=== PATIENT | female | born 1940 | race Caucasian/White ===

== ENCOUNTER → 2021-02-12 13:32 | Outpatient (CLI) | payer MEDICARE, OTHER, SELFPAY ==
--- NOTE | 2021-02-12 15:00 | DI.RAD.S_ITS ---
PROCEDURE: XR CHEST 2V INDICATIONS: Renal Mass TECHNIQUE: 2 views of the chest were acquired. COMPARISON: None. FINDINGS: Surgical changes and devices: Right upper quadrant surgical clips. Lungs and pleura: Scattered subsegmental atelectasis and/or scarring. No focal consolidation. . No pleural effusions or pneumothorax. Mediastinum: Mediastinal contours are normal. Heart size is normal. Bones and chest wall: No suspicious bony abnormalities. Soft tissues appear unremarkable. IMPRESSION: Scattered subsegmental atelectasis and/or scarring. No focal consolidation. Dictated by: Rico Yang M.D. on 02/12/2021 at 16:03 Approved by: Rico Yang M.D. on 02/12/2021 at 16:30
[2021-02-12 16:18] LABS: Add Manual Diff / Slide Review NO; Basophils Absolute Auto 0 /uL (0-100); Basophils Percent Auto 0.4 % (0-2); Eosinophils Absolute Auto 100 /uL (0-450); Eosinophils Percent Auto 0.7 % (2-4); Hematocrit 40.3 % (36-46); Hemoglobin 13.6 g/dL (12.0-16.0); Lymphocytes Absolute Auto 5100 /uL (1100-4500); Lymphocytes Percent Auto 41.8 % (25-40); Mean Corpuscular HGB Conc 33.7 % (30-36); Mean Corpuscular Hemoglobin 29.9 PG (26-34); Mean Corpuscular Volume 88.8 fL (80-100); Monocytes Absolute Auto 800 /uL (0-900); Monocytes Percent Auto 6.6 % (3-14); Neutrophils Absolute Auto 6200 /uL (1500-7000); Neutrophils Percent Auto 50.5 % (50-75); Platelet Count 273 X10^3/uL (150-400); Red Blood Cell Count 4.54 X10^6/uL (4.0-5.2); Red Cell Distribution Width 12.7 % (11.6-14.8); White Blood Cell Count 12.3 X10^3/uL (4.5-11.0)
[2021-02-12 16:56] LABS: BUN Creatinine Ratio 29.3 (6-22); Blood Urea Nitrogen 22 mg/dL (7-17); Calcium 9.1 mg/dL (8.4-10.2); Carbon Dioxide 25 mmol/L (22-32); Chloride 108 mmol/L (98-107); Estimated Glomerular Filt Rate > 60.0 mL/min (>60); Glucose 100 mg/dL (80-110); HEMOLYSIS < 15 (0-50); Potassium 3.7 mmol/L (3.4-5.1); Sodium 142 mmol/L (137-145)
== END ==
PROVIDERS: PCP Specialist; Visit Provider Specialist
DX: N39.0 Urinary tract infection, site not specified (principal); C64.9 Malignant neoplasm of unspecified kidney, except renal pelvis; N28.89 Other specified disorders of kidney and ureter; R31.0 Gross hematuria; N30.00 Acute cystitis without hematuria; Z87.440 Personal history of urinary (tract) infections
CPT/HCPCS: 36415; 71046; 80048; 81002; 85025; 87077; 87086; 87186; 99215

== ENCOUNTER 2021-04-21 06:23 | Inpatient (IN) | payer MEDICARE, OTHER, SELFPAY ==
[2021-04-11 11:31] VITALS: BMI 23.6
[2021-04-21] VITALS (19 sets, daily range): BP systolic 133–167; BP diastolic 60–81; PULSE 53–81; RESP 12–21; TEMP 36.1–37.7; O2SAT 94–100; BMI 23.8
--- NOTE | 2021-04-21 | PATH_ITS ---
[facility] Accession Number: [id number] . 01 Material submitted: . kidney - LEFT KIDNEY AND ADRENAL GLAND . 01 Clinical history: . LEFT LAPAROSCOPIC HAND ASSISTED NEPHRECTOMY . 02 Diagnosis: Left Kidney and Adrenal Gland, Laparoscopic Left Radical Nephrectomy: Clear cell renal cell carcinoma; see Cancer Case Summary. Adrenal gland with no evidence of neoplasm. . . CANCER CASE SUMMARY - KIDNEY Procedure: Radical nephrectomy. Specimen laterality: Left. Tumor site: Upper pole. Tumor size: 8.2 cm in greatest dimension. Tumor focality: Unifocal. Histologic type: Clear cell renal cell carcinoma. Sarcomatoid features: Not identified. Rhabdoid features: Not identified. Histologic grade: G2. Tumor necrosis: Not identified. Tumor extension: Tumor limited to kidney. Margins: Uninvolved by invasive carcinoma. Lymphovascular invasion: Not identified. Regional lymph nodes: No lymph nodes submitted or found. Pathologic stage classification (pTNM, AJCC 8th Edition): Primary tumor: pT2a. Regional lymph nodes: pNX Pathologic findings in nonneoplastic kidney: None identified. [facility] 04/25/2021 1715 Local . 02 Comment: As part of routine quality control head, Dr. Hodge has reviewed sales representative girls' apparel slides from this case and agrees with the diagnosis of clear cell renal cell carcinoma. . 02 Electronically signed: . Carlitos Guevara MD, PhD, Pathologist NPI- [id number] . 01 Gross description: . The specimen is received in formalin and labeled with left kidney and adrenal gland. It consists of a 514 gram, 16.3 x 11.5 x 5.9 cm left radical nephrectomy with attached surrounding yellow-cordon, coarsely lobulated adipose tissue. The visible capsule is blue-mclean to pink-cordon and ragged. A 1.5 x 0.8 cm in diameter length of ureter extends from the hilum. The ureter and vascular margins are shaved. The entire external surface is inked black. The specimen is bivalved. Bivalving the specimen reveals an 8.2 x 7.8 x 4.8 cm well-defined orange-cordon mass within the upper pole. Sectioning reveals tightly lobulated, diffusely hemorrhagic, orange-cordon cut surfaces with a well-defined border. Approximately 40 percent of the cut surfaces within the mass are made up of dull yellow, gelatinous cut surfaces with no distinguishing features. The mass comes to within 2.2 cm of the vascular resection margin, 2.4 cm of the ureter resection margin, and abuts does not grossly invade the renal capsule. Uninvolved parenchyma is pink-cordon to brown-cordon and grossly unremarkable. Sectioning the surrounding fat reveals unremarkable, focally hemorrhagic, coarsely lobulated fibroadipose tissue. The renal pelvis architecture is completely replaced by the mass. Sectioning does not reveal any additional nodules or masses. . Palpation and dissection of the perinephric fat reveal a 9 gram, 5.8 x 2.6 x 0.9 cm yellow-cordon bosselated adrenal gland. Sectioning reveals orange-cordon to yellow-cordon, cerebriform cut surfaces. A distinct nodule or lesion is not grossly apparent. Installation Engineer sections are submitted. . Summary of Sections: A1 = Vascular margins, two pieces. A2 = Ureter margin, one piece. A3-A9 = Mass, sales representative girls' apparel, one piece. A10 = Uninvolved parenchyma, sales representative girls' apparel, one piece. A11 = Perinephric fat, sales representative girls' apparel, one piece. A12-A14 = Left adrenal gland, sales representative girls' apparel, three pieces. (:[id number]) /FORM[facility] 04/22/2021 [facility] Local . 02 Pathologist provided ICD-10: C64.2 . 02 CPT . 265076 Performed at: 01 [facility] [address], [place], [place] [id number] MD Antwan Castro MD Phone: [phone] Performed at: 02 [facility] [address] [place], [place] [id number] MD Tracie Bravo MD Phone: [phone]
[2021-04-21 07:15] LABS: COVID19 -Nasal RAPID Negative (Negative)
[2021-04-21] MEDS: GABAPENTIN 300 MG CAPSULE PO (07:22)
[2021-04-21] MEDS: LACTATED RINGERS 1,000 ML 42 ML IV ×2 (07:24→10:03)
--- NOTE | 2021-04-21 07:35 | PM.PREOP ---
Pre-operative Note Interval Note History & Physical reviewed/Exam performed by Physician: Yes Changes to H&P: No
--- NOTE | 2021-04-21 07:52 | SUR.PREOP ---
Covid test done, labs drawn, gabapentin given, Tosin aware IV tylenol not given in preop.
[2021-04-21 08:02] LABS: Hematocrit 40.8 % (36-46); Hemoglobin 13.7 g/dL (12.0-16.0)
[2021-04-21 08:12] LABS: Alanine Aminotransferase 9 IU/L (<35); Albumin 4.1 g/dL (3.5-5.0); Albumin Globulin Ratio 1.8 (1.0-2.8); Alkaline Phosphatase 56 U/L (38-126); Aspartate Aminotransferase 25 IU/L (14-36); BUN Creatinine Ratio 28.3 (6-22); Bilirubin Total 0.5 mg/dL (0.2-1.3); Blood Urea Nitrogen 17 mg/dL (7-17); Calcium 9.1 mg/dL (8.4-10.2); Carbon Dioxide 23 mmol/L (22-32); Chloride 112 mmol/L (98-107); Estimated Glomerular Filt Rate > 60.0 mL/min (>60); Globulin 2.3 g/dL (1.7-4.1); Glucose 93 mg/dL (80-110); HEMOLYSIS < 15 (0-50); Potassium 3.4 mmol/L (3.4-5.1); Sodium 141 mmol/L (137-145); Total Protein 6.4 g/dL (6.3-8.2)
[2021-04-21] MEDS: CEFAZOLIN 1 GM VIAL 2 GM IV (08:43)
[2021-04-21] MEDS: ACETAMINOPHEN IV 1,000 MG/100 ML VIAL 400 MG IV (08:50)
--- NOTE | 2021-04-21 09:08 | PM.AN.REGBLK ---
Regional Block Pre-procedure Procedure: Continuous Epidural for Post-operative Pain Management (for left nephrectomy) Attending OB provider: Florentin Toro PMH/ROS narrative: Relatively healthy 81 year-old woman with a left renal mass presenting for nephrectomy. Surgeon requests epidural for post-op pain control PSH/Anesthesia history narrative: No previous issues with anesthesia. IOC and jackie in the past. Exam narrative: MP1, normal dentition and range of motion, RRR, CTAB ASA Class: II Labs: Hct 40.8 % (36-46) 04/21/21 07:40 Medications: Current Medications Generic Name Dose Route Start Last Admin Trade Name Freq PRN Reason Stop Dose Admin Fentanyl 0 mcg 04/21/21 08:52 Fentanyl 100 Mcg/2 Ml Inj IV Q5MIN PRN Pain, Severe (7-10) Hydromorphone HCl 0 mg 04/21/21 08:52 Hydromorphone 2 Mg Inj IV Q5MIN PRN Pain, Mild (1-3) Lactated Ringer's 500 mls @ 25 mls/hr 04/21/21 06:00 Lactated Ringers IV CONT SEAN Lactated Ringer's 1,000 mls @ 42 mls/hr 04/21/21 07:24 04/21/21 07:24 Lactated Ringers IV 04/22/21 07:12 42 mls/hr NOW ONE Administration Lactated Ringer's 1,000 mls @ 120 mls/hr 04/21/21 09:00 Lactated Ringers IV CONT SEAN Ondansetron HCl 4 mg 04/21/21 08:52 Ondansetron 4 Mg/2 Ml Inj IV NOW PRN Nausea And Vomiting Allergies: Allergies Allergy/AdvReac Type Severity Reaction Status Date / Time latex Allergy Severe pulls my Verified 04/11/21 12:13 skin off Procedure Insertion date: 04/21/21 Insertion time: 08:09 Prep/Local: betadine x3 (chloroprep) and 1% lidocaine Interspace: T9-10 Patient position: sitting Needle: 18 gauge [place] (right paramedian approach) Loss of resistance with: saline (with air bubble) CHELSEY at (cm): 5 Catheter placed at SKIN (cm): 10 Catheter in SPACE (cm): 5 Insertion: No CSF, No Blood, No Paresthesia with insertion, No Paresthesia with injection and No Test dose reaction Initial Medications TEST DOSE time: 08:09 TEST DOSE: 1.5% lidocaine with epinephrine 1:200k (mL): 3 Infusion Initial rate (mL/hr): 6 Subsequent interventions: boluses of bupivicaine 0.25% during the surgery (see anesthesia record). Infusion started at 6mL/hr bupivicaine with fentanyl Post-procedure Anesthesia time START: 07:55 Anesthesia time END: 08:11 Post-procedure Anesthesia Assessment: Yes CV function: HR/BP stable, Yes Resp function: RR/sat/airway adequate, Yes Post-op hydration adequate, Yes Pain control adequate, Yes Nausea & vomiting absent, Yes Temperature > 36 C, Yes Mental status appropriate and No Anesthesia complications
[2021-04-21] MEDS: BUPIVACAINE 0.5% (PF) VIAL 30 ML INJ (09:20)
[2021-04-21] MEDS: FENT 2MCG/ML BUPIV 0.125% EPI 200 MCG/100 ML PLAST..BAG 6 MCG EPIDURAL ×2 (11:01→22:56)
[2021-04-21] MEDS: BUPIVACAINE LIPOSOME 266 MG/20 ML VIAL INJ (11:28)
--- NOTE | 2021-04-21 11:59 | P.OP_ITS ---
Operative Date/Time/Diagnoses Date of procedure: 04/21/21 Time of procedure: 11:59 Pre-op diagnosis: Left renal mass Post-op diagnosis: same Procedure & Clinicians Procedure: Left hand assisted laparoscopic left radical nephrectomy Same procedure as scheduled: Yes Indications: 1. 9 cm left renal mass Surgeon: Florentin Toro Concrete Conveyor Operator: Maddison Quiñones Click Yes if Unassisted: No Anesthesia Type: General, Epidural and Local Operative Notes Findings: 1. Large left renal mass extending posteriorly as depicted on preoperative imaging. 2. Single renal artery and renal vein. 3. Prominent tumor neovascularity. Closure Type: primary Specimen(s): other (Left kidney and adrenal gland) Applied: catheter (16 Sudanese Vargas catheter) Estimated Blood Loss (mL): 10 Blood products transfused: none Tourniquet time (min): 0 Procedure in detail: The patient was positioned in modified left lateral flank. The abdomen and torso were prepped and draped in sterile fashion. Local anesthetic was used to infiltrate the midline above the umbilicus. A midline incision was then made through the skin, subcutaneous fat, and the midline rectus abdominis fascia using blunt, sharp, and cautery technique. The peritoneum was then identified and opened the length of the incision. A laparoscopic hand port was positioned within this incision. A 5 mm port was then passed through the GelPort and the camera was positioned for placement of 10 mm ports at approximately the mid mammary line just below the costal margin on the left and about the mid mammary line nearly lateral to the umbilicus on the left. Small incisions were made at these sites after application of local anesthetic. The ports were then positioned under direct visualization. Next, the white line of Toldt was incised from the sigmoid to the transverse colon/splenic flexure. The descending colon and splenic flexure then carefully rolled off the retroperitoneum using blunt technique. A meticulous search was then undertaken to identify the great vessels. From there left renal vein was identified. An adrenal accessory vein was identified emanating superiorly of the main renal vein and this was isolated, clipped proximally distally and then divided with the LigaSure Impact device. The same steps and maneuvers were performed to address the gonadal vein emanating off the inferior aspect of the renal vein. There is rather impressive tumor neovascularity in the vicinity making direct visualization of the left renal artery and on reasonable risk. Therefore careful blunt and cautery technique were then used to create a window behind the left renal artery now with the surface of the left renal vein cleared, the 45 mm endovascular stapler was advanced into the abdomen was positioned across both the left renal artery and vein and then was engaged. Following transection of the hilum hemostasis was excellent. Further meticulous dissection was undertaken using blunt and cautery technique to mobilize the left kidney and adrenal gland entirely from the left retroperitoneum. Again extensive tumor neovascularity was noted. Hemostasis was excellent. Next, careful inspection was undertaken in the operative field and hilum and hemostasis was found to be excellent. The colon and omentum were repositioned anatomically. The 5 mm port was then repositioned traversing the GelPort. The port incisions were then closed using intermittent 0 Vicryl. The closure of the fascia was undertaken under direct visualization through scope. The kidney and adrenal gland were then delivered through the hand port incision in submitted to pathology for routine gross and microscopic examination. The midline rectus fascia was then closed using running 0 PDS. The subcutaneous layer was closed using a running 3-0 Vicryl and both the midline incision and the port incision. Finally the port incisions and the midline incision skin edges were reapproximated using a running subcuticular 4-0 Monocryl. Telfa dressings were tailored to the incision size in with an op-site dressings were then applied over these for a bio occlusive finish dressing. Next the patient was repositioned in supine, was awakened, and was then tr ansported to recovery in stable condition. Complications: none Post-operative Condition: stable Disposition: PACU Plan for aftercare: Acute care
[2021-04-21] MEDS: fentaNYL 100 MCG/2 ML INJ IV ×4 (12:41→13:12)
--- NOTE | 2021-04-21 14:17 | SUR.PHASEI ---
Late entry: Pt arrived to PACU with patent airway, sats WNL on room air. Pt when awake c/o 9/10 pain to both posterior shoulders. Initially warm blankets placed, then changed to ice packs. Pain to shoulders improved with ice packs and fentanyl. No pain from surgical sites on abdomen. Suctioned scant amount of phlem from throat initially on arrival, rest cleared with fluids. Pt stated pain in shoulders down to 3/10 upon d/c to ICU. Pt transported to ICU epidural infusing, o2 at 2/l per nasal cannula.
[2021-04-21] MEDS: LACTATED RINGERS 1,000 ML 125 ML IV ×2 (14:53→22:12)
--- NOTE | 2021-04-21 14:59 | PC.NURSE ---
PT RECEIVED FROM PACU TO ROOM 228- PT IS ALERT/ORIENTED AND LUNGS DIM BUT CLEAR, NO NOTED EDEMA, PAIN RATED 1/10 IN BILAT SHOULDERS - ABDOMEN WITH MIDLINE INCISION AND LAP SITES X 2 ALL CDI, FEW BOWEL TONES AUSCULTATED- ROOM AIR SPO2 99%, SCD'S IN PLACE. EPIDURAL IS PATENT ( BUPIVICAINE/FENTANYL) AT 6ML/H ALONG WITH BRICK YARD HAND DOSE OF 3 - EXPLAINED USE OF BRICK YARD HAND AND BED CONTROLS TO PT ALL QUESTIONS ANSWERED -MRSA SWAB SENT AND LR INFUSING TO LEFT HAND
[2021-04-21] MEDS: ESTRADIOL 0.01% 1 EACH VAG (21:22)
[2021-04-22 05:05] VITALS: BP 140/65; PULSE 59; RESP 12; TEMP 36.8; O2SAT 97
[2021-04-22] MEDS: LACTATED RINGERS 1,000 ML 125 ML IV (05:46)
[2021-04-22 07:27] VITALS: BP 120/58; PULSE 65; RESP 18; TEMP 36.9; O2SAT 96
--- NOTE | 2021-04-22 07:54 | PM.PN.1 ---
Subjective Subjective Date Patient Seen: 04/22/21 Time Patient Seen: 07:54 Interval history: The patient is postoperative day 1. Status post left hand assisted laparoscopic radical nephrectomy. She reports an uneventful night. She denies pain. She is in good spirits. And tolerating p.o. fluids. Exam Vital Signs (past 8 hours): - 04/22/21 05:05 Temperature 98.3 F Pulse Rate 59 L Respiratory Rate 12 Blood Pressure 140/65 Pulse Oximetry 97 Oxygen Delivery Method Room Air Oxygen Flow Rate 0 Narrative Exam Narrative: The patient is resting comfortably in bed in no acute distress. Chest-equal and unlabored expansion bilaterally. Heart-NSR. Abdomen-dressings are intact. Bowel tones are present and there is no evidence of distention. Extremities-warm without pallor or cyanosis. Objective Labs Result Diagrams: 04/21/21 07:40 04/21/21 07:40 Labs: Laboratory Results - last 24 hr 04/21/21 04/21/21 04/21/21 07:40 07:40 07:45 Hgb 13.7 Hct 40.8 Sodium 141 Potassium 3.4 Chloride 112 H Carbon Dioxide 23 BUN 17 Creatinine 0.60 Estimated GFR > 60.0 BUN/Creatinine Ratio 28.3 H Glucose 93 Calcium 9.1 Total Bilirubin 0.5 AST 25 ALT 9 Alkaline Phosphatase 56 Total Protein 6.4 Albumin 4.1 Globulin 2.3 Albumin/Globulin Ratio 1.8 Nasal Screen MRSA (PCR) Blood Type B Positive Antibody Screen Negative 04/21/21 15:12 Hgb Hct Sodium Potassium Chloride Carbon Dioxide BUN Creatinine Estimated GFR BUN/Creatinine Ratio Glucose Calcium Total Bilirubin AST ALT Alkaline Phosphatase Total Protein Albumin Globulin Albumin/Globulin Ratio Nasal Screen MRSA (PCR) Negative for mrsa Blood Type Antibody Screen [facility] Medical History (Updated 04/11/21 @ 12:19 by Tawanna Goodman RN) Gross hematuria History of UTI HTN (hypertension) Left renal mass Leg cramps UTI (urinary tract infection) Varicose vein of leg Walking pneumonia Surgical History (Updated 04/11/21 @ 12:18 by Tawanna Goodman RN) Hx of bilateral cataract extraction Hx of cholecystectomy Family History Mother Diabetes mellitus Social History marital status: household members: spouse Smoking Status: Former smoker alcohol intake: current caffeine: Yes Assessment & Plan Assessment & Plan narrative: Assessment: 1. Stable postoperative interval 1 status post left hand assisted laparoscopic radical nephrectomy. Plan: 1. Increase diet and activity. 2. Continue epidural for now. Consider wean in discontinuation 04/23/2021. 3. Pathology pending.
--- NOTE | 2021-04-22 08:07 | P.PN_ITS ---
Subjective Subjective Date Patient Seen: 04/22/21 Time Patient Seen: 06:45 Interval history: Patient is POD#1 s/p lap hand-assisted left nephrectomy with thoracic epidural day #2 for post-op pain control. She relates good pain control (0/10 between neck and pubis) with one incidence when the infusate ran out that she had some lower abdominal pressure and headache. She has not been out of bed yet. She ate a normal dinner, and is hoping to have a bowel movement today. Exam Vital Signs (past 8 hours): - 04/22/21 05:05 Temperature 98.3 F Pulse Rate 59 L Respiratory Rate 12 Blood Pressure 140/65 Pulse Oximetry 97 Oxygen Delivery Method Room Air Oxygen Flow Rate 0 Const General: cooperative, comfortable and No acute distress Back/Spine/Pelvis Other: epidural catheter in place with slight heme but at 10cm at skin and no infusate pooling. Neuro General: patient alert, patient awake and patient oriented x3 Motor: muscle tone normal throughout and strength 5/5 throughout Objective Labs Result Diagrams: 04/21/21 07:40 04/21/21 07:40 Labs: Laboratory Results - last 24 hr 04/21/21 04/21/21 04/21/21 07:40 07:40 07:45 Hgb 13.7 Hct 40.8 Sodium 141 Potassium 3.4 Chloride 112 H Carbon Dioxide 23 BUN 17 Creatinine 0.60 Estimated GFR > 60.0 BUN/Creatinine Ratio 28.3 H Glucose 93 Calcium 9.1 Total Bilirubin 0.5 AST 25 ALT 9 Alkaline Phosphatase 56 Total Protein 6.4 Albumin 4.1 Globulin 2.3 Albumin/Globulin Ratio 1.8 Nasal Screen MRSA (PCR) Blood Type B Positive Antibody Screen Negative 04/21/21 15:12 Hgb Hct Sodium Potassium Chloride Carbon Dioxide BUN Creatinine Estimated GFR BUN/Creatinine Ratio Glucose Calcium Total Bilirubin AST ALT Alkaline Phosphatase Total Protein Albumin Globulin Albumin/Globulin Ratio Nasal Screen MRSA (PCR) Negative for mrsa Blood Type Antibody Screen [facility] Medical History (Updated 04/11/21 @ 12:19 by Tawanna Goodman RN) Gross hematuria History of UTI HTN (hypertension) Left renal mass Leg cramps UTI (urinary tract infection) Varicose vein of leg Walking pneumonia Surgical History (Updated 04/11/21 @ 12:18 by Tawanna Goodman RN) Hx of bilateral cataract extraction Hx of cholecystectomy Family History Mother Diabetes mellitus Social History marital status: household members: spouse Smoking Status: Former smoker alcohol intake: current caffeine: Yes Assessment & Plan Assessment & Plan narrative: 81 year-old woman doing well post-nephrectomy with epidural pain control. Continue epidural for pain control along with scheduled multi-modals (acetaminophen). Encourage ambulation. Can consider decreasing infusate from 6mL/hr to 4mL/hr if feeling unsteady with ambulation. Will await surgical team disposition plan for catheter removal date. Time Spent With Patient Time with patient: 15-24 minutes
[2021-04-22] MEDS: ENOXAPARIN 40 MG/0.4 ML SYRINGE SUBCUT (08:42)
[2021-04-22 10:48] VITALS: O2SAT 97
[2021-04-22] MEDS: ACETAMINOPHEN 325 MG TABLET 650 MG PO ×3 (11:21→23:58)
[2021-04-22] MEDS: FENT 2MCG/ML BUPIV 0.125% EPI 200 MCG/100 ML PLAST..BAG 6 MCG EPIDURAL (11:21)
[2021-04-22 13:59] VITALS: BP 141/63; PULSE 91; RESP 18; TEMP 36.7; O2SAT 96
--- NOTE | 2021-04-22 14:51 | CM.DANOTE ---
Met with patient and Sukhwinder ([phone]). Pt. here for nephrectomy. Remains in ICU on an epidural pain pump. Pt. had not been out of bed but is very independant at baseline. Has acquired a FWW to assist with ambulating at home. Pt. does have 12 steps to get into house and is a little nervous about those. Plans to stay in a hotel this week in [place] before returning home to [place]. Nurse Estefania got patient up late in am and reports her doing very well. RN doesn't anticipate a need for PT, but given stairs consider PT consult over next couple days if patient's ambulation is risky.
[2021-04-22] MEDS: OXYCODONE IR 5 MG TABLET PO (15:07)
--- NOTE | 2021-04-22 15:20 | PC.NURSE ---
Day Shift Note Pt up to chair with minimal assist for lunch and has remained there for rest of shift. Reported increased swelling to right side, swelling visibly greater than left with crepitus noted from flank to the back, slight leaking noted at epidural site. Pt reported increased sensation to left side compared to this AM but denied pain. Dr. Perdomo called to notify of the above findings. Dr. Perdomo at bedside and evaluated epidural site and swelling. No abnormal findings found per MD and no new orders received. Epidural continuing at 6 ml/hr. Oxycodone administered for 6/10 bilateral shoulder pain. Call light within reach, using appropriately to make needs known.
[2021-04-22 16:16] VITALS: BP 153/67; PULSE 53; RESP 17; TEMP 36.3; O2SAT 97
[2021-04-22 20:41] VITALS: BP 139/63; PULSE 53; RESP 16; TEMP 36.5; O2SAT 96
[2021-04-23] VITALS: BP 162/74; PULSE 55; RESP 18; TEMP 36.3; O2SAT 97
[2021-04-23] MEDS: FENT 2MCG/ML BUPIV 0.125% EPI 200 MCG/100 ML PLAST..BAG 6 MCG EPIDURAL (00:12)
[2021-04-23 05:00] VITALS: BP 143/63; PULSE 53; RESP 18; TEMP 36.7; O2SAT 95
[2021-04-23] MEDS: ACETAMINOPHEN 325 MG TABLET 650 MG PO ×4 (05:43→23:59)
--- NOTE | 2021-04-23 07:14 | PM.PN.1 ---
Subjective Subjective Date Patient Seen: 04/23/21 Time Patient Seen: 07:00 Interval history: Patient is POD#2, epidural day #3 from lap hand-assisted left nephrectomy. Doing well with pain control, abdominal swelling is only discomfort now that shoulder pain has decreased. Pump reports two boluses given since yesterday AM. She does not feel comfortable considering discharge today. Exam Vital Signs (past 8 hours): - 04/23/21 00:00 04/23/21 05:00 Temperature 97.4 F L 98.0 F Pulse Rate 55 L 53 L Respiratory Rate 18 18 Blood Pressure 162/74 H 143/63 H Pulse Oximetry 97 95 Oxygen Delivery Method Room Air Oxygen Flow Rate 0 Const General: cooperative, healthy appearing and comfortable Back/Spine/Pelvis Other: Epidural clean dry and intact at 10cm at the skin. Neuro General: patient alert, patient awake and patient oriented x3 Motor: muscle tone normal throughout and strength 5/5 throughout Objective Labs Result Diagrams: 04/21/21 07:40 04/21/21 07:40 [facility] Medical History (Updated 04/11/21 @ 12:19 by Tawanna Goodman RN) Gross hematuria History of UTI HTN (hypertension) Left renal mass Leg cramps UTI (urinary tract infection) Varicose vein of leg Walking pneumonia Surgical History (Updated 04/11/21 @ 12:18 by Tawanna Goodman RN) Hx of bilateral cataract extraction Hx of cholecystectomy Family History Mother Diabetes mellitus Social History marital status: household members: spouse Smoking Status: Former smoker alcohol intake: current caffeine: Yes Assessment & Plan Assessment & Plan narrative: 81 year-old woman POD#2 with good epidural pain control. In discussion with surgeon, will plan weaning to orals tonight with plan for discontinuing epidural tomorrow morning with AM lovenox held. Continue scheduled acetaminophen. Time Spent With Patient Time with patient: less than 15 minutes
--- NOTE | 2021-04-23 07:46 | P.PN_ITS ---
Subjective Subjective Date Patient Seen: 04/23/21 Time Patient Seen: 07:46 Interval history: Patient is postoperative day 2. Status post left hand assisted laparoscopic radical nephrectomy. She reports an uneventful night. She is passing gas but has not had a bowel movement and indicates that she would like to have a bowel movement. Pain is adequately controlled. I spoke with Dr. jones regarding coordinating plan for eventual discontinuation of epidural catheter later today or in the very vacation guide hours of 04/24/2021. Exam Vital Signs (past 8 hours): - 04/23/21 00:00 04/23/21 05:00 Temperature 97.4 F L 98.0 F Pulse Rate 55 L 53 L Respiratory Rate 18 18 Blood Pressure 162/74 H 143/63 H Pulse Oximetry 97 95 Oxygen Delivery Method Room Air Oxygen Flow Rate 0 Narrative Exam Narrative: She is resting comfortably in bed in no distress. Chest-equal and unlabored expansion bilaterally. Heart-NSR. Abdomen-normal active bowel tones. Dressing are intact. Objective Labs Result Diagrams: 04/21/21 07:40 04/21/21 07:40 [facility] Medical History (Updated 04/11/21 @ 12:19 by Tawanna Goodman, RN) Gross hematuria History of UTI HTN (hypertension) Left renal mass Leg cramps UTI (urinary tract infection) Varicose vein of leg Walking pneumonia Surgical History (Updated 04/11/21 @ 12:18 by Tawanna Goodman, RN) Hx of bilateral cataract extraction Hx of cholecystectomy Family History Mother Diabetes mellitus Social History marital status: household members: spouse Smoking Status: Former smoker alcohol intake: current caffeine: Yes Assessment & Plan Assessment & Plan narrative: Assessment: 1. Stable postop day 2 status post left hand assisted laparoscopic radical nephrectomy. 2. Epidural catheter. 3. Pathology pending. Plan: 1. Continue to increase diet and activity. Add Dulcolax to assist in return of lower GI function. 2. Epidural wean in discontinuation plan coordinated with Dr. jones this morning. 3. Follow-up pathology report when final.
[2021-04-23 08:16] VITALS: BP 165/72; PULSE 53; RESP 16; TEMP 36.2; O2SAT 97
[2021-04-23 12:25] VITALS: BP 148/67; PULSE 55; RESP 16; TEMP 36.6; O2SAT 95
[2021-04-23] MEDS: ENOXAPARIN 40 MG/0.4 ML SYRINGE SUBCUT (13:29)
[2021-04-23] MEDS: BISACODYL 10 MG SUPP PR (13:29)
[2021-04-23 16:14] VITALS: BP 152/68; PULSE 64; RESP 17; TEMP 36.2; O2SAT 96
[2021-04-23] MEDS: HYDROMORPHONE 2 MG TABLET PO (18:23)
[2021-04-23 20:00] VITALS: BP 184/77; PULSE 63; RESP 16; TEMP 36.6; O2SAT 96
[2021-04-24] VITALS: BP 168/71; PULSE 58; RESP 14; TEMP 36.4; O2SAT 94
[2021-04-24] MEDS: HYDROMORPHONE 2 MG TABLET PO ×5 (01:34→23:46)
[2021-04-24] MEDS: hydrOXYzine pamoate 25 MG CAPSULE PO ×5 (01:35→23:46)
[2021-04-24] MEDS: ACETAMINOPHEN 325 MG TABLET 650 MG PO ×4 (05:51→23:46)
--- NOTE | 2021-04-24 06:11 | PC.NURSE ---
0600- Patient epidural has been off since 0115- Patient tolerating well and she slept some this shift. Patient c/o burning discomfort and full feeling in her abdomen at 0600. Medicated per orders. Will monitor.
[2021-04-24 06:15] VITALS: BP 183/82; PULSE 58; RESP 16; TEMP 36.5; O2SAT 96
--- NOTE | 2021-04-24 07:07 | P.PN_ITS ---
Subjective Subjective Date Patient Seen: 04/24/21 Time Patient Seen: 07:00 Interval history: Patient is POD#3 from lap hand-assisted left nephrectomy, epidural day #4. Epidural infusion was stopped approximately 6 hours ago, with pain control via PO medications. Patient states she had a rough night from the bed not working, but that pain has been tolerable. Exam Vital Signs (past 8 hours): - 04/24/21 00:00 Temperature 97.6 F Pulse Rate 58 L Respiratory Rate 14 Blood Pressure 168/71 H Pulse Oximetry 94 Oxygen Delivery Method Room Air Oxygen Flow Rate 0 Const General: cooperative, healthy appearing and comfortable Back/Spine/Pelvis Other: Epidural catheter in place, clean, dry and intact at 10cm at the skin Neuro Motor: muscle tone normal throughout and strength 5/5 throughout Objective Labs Result Diagrams: 04/21/21 07:40 04/21/21 07:40 [facility] Medical History (Updated 04/11/21 @ 12:19 by Tawanna Goodman, RN) Gross hematuria History of UTI HTN (hypertension) Left renal mass Leg cramps UTI (urinary tract infection) Varicose vein of leg Walking pneumonia Surgical History (Updated 04/11/21 @ 12:18 by Tawanna Goodman, RN) Hx of bilateral cataract extraction Hx of cholecystectomy Family History Mother Diabetes mellitus Social History marital status: household members: spouse Smoking Status: Former smoker alcohol intake: current caffeine: Yes Assessment & Plan Assessment & Plan narrative: 81 year-old woman s/p nephrectomy, with pain controlled with PO meds. Epidural catheter removed with tip intact. Lovenox okay in 4 hours if desired by surgical team. Time Spent With Patient Time with patient: less than 15 minutes
--- NOTE | 2021-04-24 07:38 | P.PN_ITS ---
Subjective Subjective Date Patient Seen: 04/24/21 Time Patient Seen: 07:38 Interval history: The patient is postoperative day status post left hand assisted laparoscopic radical nephrectomy. She reports having had some back pain last night but is improved now. Epidural catheter has been successfully weaned and discontinued. He is not complaining of incisional pain she complains of feeling bloated. Exam Vital Signs (past 8 hours): - 04/24/21 00:00 04/24/21 06:15 Temperature 97.6 F 97.7 F Pulse Rate 58 L 58 L Respiratory Rate 14 16 Blood Pressure 168/71 H 183/82 H Pulse Oximetry 94 96 Oxygen Delivery Method Room Air Oxygen Flow Rate 0 Narrative Exam Narrative: She is resting comfortably in bed in no distress. Chest-equal and unlabored expansion bilaterally. Abdomen-soft. Bowel tones are normal and active. Dressings intact. Minimal ecchymosis surrounding hand port incision. Dressings intact. Extremities-no pallor, edema, or cyanosis. Objective Labs Result Diagrams: 04/21/21 07:40 04/21/21 07:40 [facility] Medical History Gross hematuria History of UTI HTN (hypertension) Left renal mass Leg cramps UTI (urinary tract infection) Varicose vein of leg Walking pneumonia Surgical History Hx of bilateral cataract extraction Hx of cholecystectomy Family History Mother Diabetes mellitus Social History marital status: household members: spouse Smoking Status: Former smoker alcohol intake: current caffeine: Yes Assessment & Plan Assessment & Plan narrative: Assessment: 1. Stable status post left hand assisted radical left nephrectomy 04/21/2021. 2. Pathology pending. Plan: 1. Remove Vargas catheter. 2. Anticipate discharge 04/25/2021.
[2021-04-24 09:52] VITALS: BP 158/69; PULSE 57; RESP 16; TEMP 36.7; O2SAT 95
[2021-04-24 11:51] VITALS: BP 160/68; PULSE 59; RESP 16; TEMP 36.6; O2SAT 96
--- NOTE | 2021-04-24 12:30 | CM.DPNOTE ---
DCP:continued: case received, EMR reviewed and checked in with pt now at her request. Introduced self and role. Pt says she understands from Dr. Toro that she will be discharged tomorrow. Her has been staying in a hotel while she has been here and she will stay there the day of d/c and [place]. She wished to discuss option of flying home in a private plan that she would have access to. Outcome: decision by pt that even though the ferry trip would be longer it would be more comfortable in the car than all that is involved in a plan trip. She has a FWW she obtained from the [facility] that is in their car and has been using one post surgery to mobilize with nursing. She was concerned as she has only been up in the room but did not think PT was needed. Discussed with BRIAN Donis who agreed and will see that pt has a change to ambulate in the arthur today. Vargas catheter is out. P: home tomorrow. Will check in prn.
--- NOTE | 2021-04-24 14:40 | PC.NURSE ---
AM shift Pt is a/o x3, anxious. Nevarez removed per order. Epidural removed by Dr Perdomo @ 0700. Pt is tolerating well with PO dilaudid. Up ambulating in room, FWW. Voiding after nevarez out. Showered. Dressings intact. C/o pain to ribs, encouraged ambulation for gas pain. Bed changed for comfort after reports of bed noise affecting sleep overnight. Pt plans to d/c home in am, remains anxiuos about care and reassurance needed and given often.
[2021-04-24 16:05] VITALS: BP 164/76; PULSE 63; RESP 14; TEMP 37.2; O2SAT 95
[2021-04-24 20:40] VITALS: BP 163/69; PULSE 62; RESP 16; TEMP 37.1; O2SAT 95
[2021-04-24] MEDS: ESTRADIOL 0.01% 1 EACH VAG (20:50)
[2021-04-25 00:15] VITALS: BP 199/83; PULSE 58; RESP 18; TEMP 37; O2SAT 98
[2021-04-25] MEDS: ACETAMINOPHEN 325 MG TABLET 650 MG PO ×2 (05:59→11:44)
[2021-04-25] MEDS: HYDROMORPHONE 2 MG TABLET PO ×2 (05:59→11:43)
[2021-04-25] MEDS: hydrOXYzine pamoate 25 MG CAPSULE PO (05:59)
[2021-04-25 08:00] VITALS: BP 204/91; PULSE 68; RESP 21; TEMP 37; O2SAT 95
[2021-04-25 08:30] VITALS: BP 171/76
--- NOTE | 2021-04-25 08:30 | PM.DS.1 ---
History of Present Illness History of Present Illness Date Patient Seen: 04/25/21 Time Patient Seen: 08:30 Chief complaint: left Laparoscopic Hand Assisted Nephrectomy Narrative: Patient is an 81-year-old white female is admitted on 04/21/2021 for scheduled left hand assisted laparoscopic radical nephrectomy for 9 cm left renal mass. Discharge Providers Provider Date of admission: 04/21/21 06:23 Discharge Date: 04/25/21 Primary care physician: Telma Barnett MD Discharge provider: Florentin Toro MD Summary Hospital Course Discharge Diagnosis: 1. 9 cm left renal mass. Hospital Course: Patient was admitted on 04/21/2021 and underwent left hand assisted laparoscopic radical nephrectomy under general and Duramorph spinal anesthesia. Postoperative recovery was largely unremarkable in that she tolerated general diet and and able to ambulate independently by the 2nd postoperative day. Following removal of the epidural catheter in the very speech therapist early intervention hours of 04/24/2021 painless adequately controlled with oral Dilaudid. At the time of discharge pathology was pending. Status at Discharge Cognitive/behavioral status at discharge: oriented Functional status at discharge: independent ambulation Overall status at discharge: patient is back to baseline Exam Vital Signs (past 8 hours): - 04/25/21 08:00 Temperature 98.6 F Pulse Rate 68 Respiratory Rate 21 Blood Pressure 204/91 H Pulse Oximetry 95 Oxygen Delivery Method Room Air Oxygen Flow Rate 0 Narrative Exam Narrative: She is resting comfortably in chair at the bedside in no acute distress preparing to have her morning meal. Abdomen is soft and nondistended. Dressings are intact. There is minimal ecchymosis and no erythema. Extremities-no pallor, edema, or cyanosis. Objective Labs Result Diagrams: 04/21/21 07:40 04/21/21 07:40 [facility] Medical History Gross hematuria History of UTI HTN (hypertension) Left renal mass Leg cramps UTI (urinary tract infection) Varicose vein of leg Walking pneumonia Surgical History Hx of bilateral cataract extraction Hx of cholecystectomy Family History Mother Diabetes mellitus Social History marital status: household members: spouse Smoking Status: Former smoker alcohol intake: current caffeine: Yes Discharge Assessment & Plan Assessment and Plan Assessment: 1. Stable postop day 4. Status post left hand assisted laparoscopic radical nephrectomy. 2. Pathology report pending. 3. New hypertension. Plan of Treatment: 1. Hospitalist consultation prior to discharge or recommendations for antihypertensive. 2. Follow-up pathology and discuss with patient when final. 3. Discharge today pending hospitalist recommendations. 4. Will schedule follow-up in Urology Clinic for 4 weeks. 5. Will schedule outpatient consultation to nephrology. Discharge Plan Discharge Plan Patient Disposition: Home Discharge orders & Medications Prescriptions: New hydromorphone 2 mg Tablet 2 mg PO Q4H PRN (Reason: Pain, Severe (7-10)) Qty: 30 RF: 0 enoxaparin [Lovenox] 40 mg/0.4 mL Syringe 40 mg SUBCUT DAILY 30 Days Qty: 12 RF: 0 nifedipine 30 mg tablet extended release 30 mg PO DAILY Qty: 90 RF: 3 Continued cranberry extract 650 mg Capsule 650 mg PO BID RF: 0 d-mannose Powder 0.5 ea PO BID RF: 0 acetaminophen 500 mg Capsule 500 mg PO Q6H PRN (Reason: Pain) RF: 0 estradiol [Estrace] 0.01 % (0.1 mg/gram) cream 1 g vaginal 2XW Qty: 42.5 RF: 3 Follow up/Referrals: Florentin Toro MD [Physician] - Telma Barnett MD [Primary Care Provider] - Diet/Activity/Treatments Diet: Low-sodium and Low-protein/Renal Activity: No lifting greater than 15 lb or strenuous activity x4 weeks Skin/Wound/Dressing Care Skin care: May shower. No submersion in water x2 weeks. Report to your healthcare provider any signs of infection, such as:: chills, fever, increased pain and unusual redness Dressing: Remove on 04/28/2021 as instructed. Visit Report/Discharge Packet Instructions: DI for Laparoscopy, DI for Nephrectomy, DI for Prescription Opioid Use Stand Alone Forms: Surgery Discharge Discharge Data Primary Care Provider: Telma Barnett
[2021-04-25] MEDS: BISACODYL 10 MG SUPP PR (09:25)
[2021-04-25] MEDS: NIFEdipine 30 MG TAB ER PO (09:25)
[2021-04-25] MEDS: ENOXAPARIN 40 MG/0.4 ML SYRINGE SUBCUT (09:25)
--- NOTE | 2021-04-25 13:03 | PC.NURSE ---
Pt and spouse present for discharge teaching. Sat with pt and spouse and provided discharge packet with printed educational materials. Reviewed diagnosis, surgical care (pre/post op), s/s of post op wound infection, hypertension, monitoring blood pressure, dietary needs, home bowel care, activity restrictions, dressing removal date. Educated pt and spouse to medications (dose, route, time, side effects, monitoring parameters). Educated pt and spouse to use of lovenox injections. Pt was able to administer her own lovenox injection and demonstrated correct technique. Printed educational material was also provided regarding lovenox. Instructed pt and spouse to call and schedule a follow up appointment with Dr. Toro on Wednesday AM 04/27/21. Instructed pt and spouse to follow up with PCP within 2 weeks regarding new medications and hypertension. Instructed pt and spouse about concerning s/s and when to seek emergency medical treatment. Pt and spouse both verbalize understanding of dc education. They state they have no more questions. Pt was able to shower and dress herself. PIV removed. Belongings gathered and sent with pt/spouse. Pt was escorted to POV via w/c by CONTINUOUS LOFT OPERATOR in no apparent distress for discharge at 1226.
--- NOTE | 2021-05-13 13:07 | PM.HP.1 ---
History of Present Illness History of Present Illness Date Patient Seen: 04/21/21 Time Patient Seen: 07:00 Chief complaint: left Laparoscopic Hand Assisted Nephrectomy Narrative: Patient is an 81-year-old white female is admitted on 04/21/2021 for scheduled left hand assisted laparoscopic radical nephrectomy for 9 cm left renal mass. She initially presented with gross hematuria. Urine culture was positive for pansensitive E coli and 02/12/2021. Because of the degree of gross hematuria at presentation imaging was performed. Contrast CT demonstrated a 9 cm interpolar, posterior heterogeneous renal mass highly suspicious for renal cell carcinoma. Options have been discussed at length and in detail with her and her . Rationale and indications for left nephrectomy explained. Common side effects, possible complications, perioperative limitations/restrictions, and reasonable expectations of outcomes and recovery have been discussed at length and in detail. She presents today to proceed with left hand assisted laparoscopic radical nephrectomy. Patient History Medical History Gross hematuria History of UTI HTN (hypertension) Left renal mass Leg cramps UTI (urinary tract infection) Varicose vein of leg Walking pneumonia Surgical History Hx of bilateral cataract extraction Hx of cholecystectomy Family & Social History Family History Mother Diabetes mellitus Social History: household members spouse Prior Living Arrangements House Safety & Behavioral: Feels Safe in Current Yes Environment Been Physically Hurt or No Threatened By a Person Suicidal Ideation Description None Suicide Plan Description No Plan Tobacco & Substance use: Smoking Status Former smoker alcohol intake current alcohol intake frequency a few times a week Substance Use Type does not use Meds Home Medications and Allergies Home Medications Medication Instructions Recorded Confirmed Type estradiol (Estrace) 1 g VAGINAL 2XW #42.5 g 02/12/21 04/21/21 Rx acetaminophen 500 mg capsule 500 mg PO Q6H PRN 04/11/21 04/11/21 History cranberry extract 650 mg capsule 650 mg PO BID 04/11/21 04/21/21 History d-mannose 0.5 ea PO BID 04/11/21 04/21/21 History enoxaparin 40 mg/0.4 mL 40 mg SUBCUT DAILY 30 Days #12 ml 04/25/21 Rx subcutaneous syringe (Lovenox) enoxaparin 40 mg/0.4 mL 40 mg SUBCUT DAILY 30 Days #12 ml 04/25/21 Rx subcutaneous syringe (Lovenox) hydromorphone 2 mg tablet 2 mg PO Q4H PRN #30 tab 04/25/21 Rx nifedipine 30 mg tablet,extended 30 mg PO DAILY #90 tab 04/25/21 Rx release Allergies Allergy/AdvReac Type Severity Reaction Status Date / Time latex Allergy Severe pulls my Verified 04/11/21 12:13 skin off Review of Systems Review of Systems ROS: Yes All systems reviewed with the patient and are negative except as otherwise documented Exam Vital Signs (past 8 hours): Oxygen Delivery Method Room Air Oxygen Flow Rate 0 Narrative Exam Narrative: She is a vigorous, well-developed and well-nourished elderly white female appearing younger than stated age. Head/neck-sclera clear and pupils are round and equal bilaterally. Chest-clear, equal, and unlabored expansion bilaterally. Heart-regular rhythm and regular rate. No abnormal heart tones appreciated. Objective Labs Result Diagrams: 04/21/21 07:40 04/21/21 07:40 Assessment & Plan Assessment and plan (1) Left renal mass: Status: Acute Assessment & Plan narrative: Assessment: 1. 9 cm left renal mass highly suspicious for renal cell carcinoma. Plan: 1. Proceed with HAND ASSISTED LAPAROSCOPIC LEFT RADICAL NEPHRECTOMY.
== END 2021-04-25 12:26 | disposition home or self-care (01) | DRG 658 ==
LOC: AC 08:46 → ICU 14:33 → AC 04-22 15:44
PROVIDERS: Admitting Provider Specialist; PCP Specialist; Referring Provider Specialist; Visit Provider Specialist
PROC: 0TT10ZZ Resection of Left Kidney, Open Approach (ICD-10-PCS; principal; 2021-04-21 07:45)
DX: C64.2 Malignant neoplasm of left kidney, except renal pelvis (principal); Z20.822 Contact with and (suspected) exposure to COVID-19; M25.512 Pain in left shoulder; M25.511 Pain in right shoulder
CPT/HCPCS: 36415; 50545; 80053; 82962; 85014; 85018; 86850; 86900; 86901; 87635; 87797; 94762; C9803; C9290; J0131; J0690; J1100; J1650; J2405; J2704; J3010

== ENCOUNTER 2024-03-16 15:46 | Emergency (ER) | payer MEDICARE, OTHER, SELFPAY ==
[2022-09-28 13:17] VITALS: BMI 23.8
[2024-03-16] VITALS (8 sets, daily range): BP systolic 178–224; BP diastolic 81–104; PULSE 59–85; RESP 16–28; TEMP 36.9; O2SAT 96–98; BMI 24.5
--- NOTE | 2024-03-16 16:00 | DI.CT.S_ITS ---
PROCEDURE: CT HEAD/BRAIN WO CON INDICATIONS: vision change TECHNIQUE: Noncontrast 4.5 mm thick angled axial sections acquired from the foramen magnum to the vertex, with coronal and sagittal reformats. For radiation dose reduction, the following was used: automated exposure control, adjustment of mA and/or kV according to patient size. COMPARISON: None. FINDINGS: Image quality: Diagnostic. CSF spaces: Basal cisterns are patent. No extra-axial fluid collections. The ventricles are symmetric in size and shape. Brain: No intracranial bleeds or masses. There is cerebral volume loss for age, with resultant ventricular and sulcal prominence. There are mild, age-appropriate periventricular and deep white matter chronic small vessel ischemic changes. There is intracranial internal carotid artery atherosclerosis. Skull and face: Calvarium and visualized facial bones appear intact, without suspicious lesions. Sinuses: Visualized sinuses and mastoids are clear. IMPRESSION: No acute intracranial pathology. Dictated by: Edin Vences M.D. on 03/16/2024 at 16:48 Approved by: Edin Vences M.D. on 03/16/2024 at 16:49
--- NOTE | 2024-03-16 16:00 | DI.RAD.S_ITS ---
PROCEDURE: XR CHEST 1V INDICATIONS: Possible stroke TECHNIQUE: One view of the chest was acquired. COMPARISON: [facility], CR, XR CHEST 2V, 02/12/2021, 15:10. FINDINGS: Surgical changes and devices: None. Lungs and pleura: Lungs are clear. No pleural effusions or pneumothorax. Mediastinum: Mediastinal contours appear normal. Heart size is normal. Bones and chest wall: No suspicious bony lesions. Overlying soft tissues appear unremarkable. IMPRESSION: No acute cardiopulmonary abnormality is seen. Dictated by: Lazarus Downey M.D. on 03/16/2024 at 17:35 Approved by: Lazarus Downey M.D. on 03/16/2024 at 17:36
[2024-03-16 16:26] LABS: Hematocrit 41.3 % (36-46); Hemoglobin 13.8 g/dL (12.0-16.0); Mean Corpuscular HGB Conc 33.4 % (30-36); Mean Corpuscular Hemoglobin 29.9 PG (26-34); Mean Corpuscular Volume 89.3 fL (80-100); Platelet Count 195 X10^3/uL (150-400); Red Blood Cell Count 4.63 X10^6/uL (4.0-5.2); White Blood Cell Count 13.5 X10^3/uL (4.5-11.0)
--- NOTE | 2024-03-16 16:32 | DI.MRI.S_ITS ---
PROCEDURE: MR HEAD/BRAIN WO CON INDICATIONS: vision disturbance TECHNIQUE: Non-contrast axial T1 spin echo, axial T2 fast spin echo, sagittal and axial FLAIR, coronal T2 fast spin echo, axial gradient echo, axial diffusion and ADC through the brain. COMPARISON: None. FINDINGS: Image quality: Excellent. CSF spaces: Ventricles appear symmetric in size and shape. Basal cisterns are patent. No extra-axial fluid collections. Brain: No intracranial bleeds or mass effects. There is cerebral volume loss for age. There are periventricular and deep white matter chronic small vessel ischemic changes. Brainstem appears normal. Diffusion-weighted images show no acute infarct. No chronic ischemic insults. Normal intravascular flow voids are present. Skull and face: Calvarial bone marrow is normal in signal. Orbits are normal. Sinuses: Sinuses and mastoids are clear. IMPRESSION: No acute intracranial pathology. Dictated by: Lazarus Downey M.D. on 03/16/2024 at 18:50 Approved by: Lazarus Downey M.D. on 03/16/2024 at 18:51
[2024-03-16 16:33] LABS: Prothrombin Time 11.4 SECONDS (9.4-12.5)
[2024-03-16 16:36] LABS: Alanine Aminotransferase 10 IU/L (<35); Albumin 4.5 g/dL (3.5-5.0); Alkaline Phosphatase 64 U/L (38-126); Aspartate Aminotransferase 26 IU/L (14-36); BUN Creatinine Ratio 30.8 (6-22); Bilirubin Total 0.5 mg/dL (0.2-1.3); Blood Urea Nitrogen 37 mg/dL (7-17); Calcium 9.4 mg/dL (8.4-10.2); Carbon Dioxide 25 mmol/L (22-32); Chloride 110 mmol/L (98-107); Creatine Kinase 75 U/L (30-135); Estimated Glomerular Filt Rate 44 mL/min (>60); Globulin 2.3 g/dL (1.7-4.1); Glucose 99 mg/dL (80-110); HEMOLYSIS < 15 (0-50); Magnesium 2.3 mg/dL (1.6-2.3); PTT Partial Thromboplastin Tim 34 SECONDS (25.1-36.5); Potassium 4.3 mmol/L (3.4-5.1); Sodium 139 mmol/L (137-145); Total Protein 6.8 g/dL (6.3-8.2)
--- NOTE | 2024-03-16 16:36 | PC.NURSE ---
2 days ago the patient had double vision. she went for a normal eye exam today and told her MD that she had double vision and that she was told to come the ER. She is not having double vision right now.
[2024-03-16 16:41] LABS: Add Manual Diff / Slide Review YES
[2024-03-16 16:44] LABS: Neutrophils Absolute Manual 7020 /uL (3000-5900); RBC Morphology Normal Morphology; Total Cells Counted 100
[2024-03-16 16:48] LABS: Troponin I < 0.012 ng/mL (0.01-0.034)
--- NOTE | 2024-03-16 18:48 | ED_ITS ---
HPI - Eye Problem General Chief complaint: Eye Problems Stated complaint: dr ref/double vision Time Seen by Provider: 03/16/24 16:05 Source: patient Mode of arrival: Ambulatory History of Present Illness HPI Narrative: 84-year-old referred from eye Clinic for resolved episode of double vision, noted to have superior double vision episodes 30 minutes in the last week while reading a book, no associated headache or nausea or vomiting, on dilated eye exam has a wrinkle in the right retinal area, some diplopia that seemed new of concern, visual field noted deficit right bottom field of view, left upper field. Opthalamology admits this seems fairly atypical for stroke, however ophthalmology would feel more comfortable with MRI Brain evaluation. She has a history of renal cancer, status post remote unilateral nephrectomy Related Data Home Medications Medication Instructions Recorded Confirmed acetaminophen 500 mg capsule 500 mg PO Q6H PRN Pain 04/11/21 11/30/23 cranberry extract 650 mg capsule 650 mg PO BID 04/11/21 11/30/23 d-mannose 0.5 ea PO BID 04/11/21 11/30/23 Previous Rx's Medication Instructions Recorded amlodipine 2.5 mg tablet 2.5 mg PO DAILY #30 tabs 03/16/24 Allergies Allergy/AdvReac Type Severity Reaction Status Date / Time latex Allergy Severe pulls my Verified 12/15/22 10:10 skin off Patient History Medical History History of renal cell carcinoma Postmenopausal atrophic vaginitis Varicose vein of leg HTN (hypertension) Walking pneumonia Leg cramps UTI (urinary tract infection) History of UTI Gross hematuria Surgical History Hx of bilateral cataract extraction Hx of cholecystectomy Family History Mother Diabetes mellitus Social History marital status: household members: spouse Smoking Status: Former smoker alcohol intake: current caffeine: Yes Smoking Status: Former smoker alcohol intake frequency: a few times a week Substance Use Type: does not use Exam Narrative Exam Narrative: GENERAL: Well-developed patient, in mild distress. HEAD: Atraumatic. Normocephalic. EYES: Pupils equal round and reactive. Extraocular motions intact. No scleral icterus. No injection or drainage. ENT: Nose without bleeding, purulent drainage. Throat without erythema, tonsillar hypertrophy or exudate. Airway patent. NECK: Trachea midline. Non tender CARDIOVASCULAR: Regular rate and rhythm without murmurs, gallops, or rubs. RESPIRATORY: Clear to auscultation. Breath sounds equal bilaterally. No wheezes, rales, or rhonchi. GASTROINTESTINAL: Abdomen soft, non-tender, nondistended. EXTREMITIES: No edema or joint tenderness. BACK: Nontender without deformity or crepitance. No flank tenderness. NEURO: AOx3. Dilated pupils from recent ophthalmology evaluation. No diplopia on lateral and horizontal eye movements. No facial droop, clear speech, raises eyebrows well, shrug shoulders, extrudes and deviates tongue, normal clear speech pattern, handling secretions well. Motor 5/5 bilateral legs. Motor 5/5 bilateral arms. [id number] testing right and left normal. SKIN: No rash or erythema of visible areas Initial Vital Signs Initial Vital Signs: Vital Signs Temperature 98.4 F 03/16/24 15:56 Pulse Rate 85 03/16/24 15:56 Respiratory Rate 17 03/16/24 15:56 Blood Pressure 224/104 H 03/16/24 15:56 Pulse Oximetry 96 03/16/24 15:56 Oxygen Delivery Method Room Air 03/16/24 15:56 Course Orders Ordered: ED Orders 03/16/24 16:00 CT head/brain wo con Stat XR chest 1V Stat EKG-12 Lead Stat 03/16/24 16:15 Complete Blood Count AUTO DIFF Stat Comprehensive Metabolic Panel Stat Magnesium Stat PTT Partial Thromboplastin Bowen Stat Prothrombin Time INR Stat Troponin & CK Cardiac Panel Stat 03/16/24 16:32 MR head/brain wo con Stat 03/16/24 18:46 US carotid doppler BI Stat Discontinued Medications Amlodipine Besylate (Amlodipine 5 Mg Tablet) 2.5 mg PO NOW ONE Stop: 03/16/24 19:44 Last Admin: 03/16/24 20:00 Dose: 2.5 mg Documented By: ADELA Hydralazine HCl (Hydralazine 20 Mg/Ml Vial) 5 mg IV NOW ONE Stop: 03/16/24 20:14 Last Admin: 03/16/24 20:52 Dose: Not Given Documented By: ZGG Ondansetron HCl (Ondansetron 4 Mg/2 Ml Inj) 4 mg IV NOW PRN PRN Reason: Nausea And Vomiting Ondansetron HCl (Ondansetron 4 Mg Odt) 4 mg SL NOW PRN PRN Reason: Nausea And Vomiting Vital Signs Vital signs: Vital Signs - 8 hr 03/16/24 15:56 03/16/24 16:35 03/16/24 17:00 Temperature 98.4 F Pulse Rate 85 68 66 Respiratory Rate 17 Blood Pressure 224/104 H Pulse Oximetry 96 97 97 Oxygen Delivery Method Room Air 03/16/24 17:30 03/16/24 17:38 03/16/24 17:38 Temperature Pulse Rate 63 62 Respiratory Rate 28 H 16 Blood Pressure 198/84 H Pulse Oximetry 97 97 Oxygen Delivery Method 03/16/24 17:59 03/16/24 18:00 03/16/24 20:43 Temperature Pulse Rate 59 L 63 Respiratory Rate 22 Blood Pressure 188/98 H 178/81 H Pulse Oximetry 98 96 Oxygen Delivery Method Room Air MDM - Eye Problem Lab Data Attestation: I reviewed the patient's lab results. 03/16/24 16:15 03/16/24 16:15 Labs: Lab Results 03/16/24 Range/Units 16:15 WBC 13.5 H (4.5-11.0) X10^3/uL RBC 4.63 (4.0-5.2) X10^6/uL Hgb 13.8 (12.0-16.0) g/dL Hct 41.3 (36-46) % MCV 89.3 (80-100) fL MCH 29.9 (26-34) PG MCHC 33.4 (30-36) % RDW 13.0 (11.6-14.8) % Plt Count 195 (150-400) X10^3/uL Neut % (Auto) Not Reportable Lymph % (Auto) Not Reportable [place] % (Auto) Not Reportable Eos % (Auto) Not Reportable Baso % (Auto) Not Reportable Lymph # (Auto) Not Reportable [place] # (Auto) Not Reportable Baso # (Auto) Not Reportable Total Counted 100 Seg Neutrophils % 52.0 (38-70) % Lymphocytes % (Manual) 42.0 (25-45) % Monocytes % (Manual) 4.0 (2-11) % Eosinophils % (Manual) 1.0 L (2-4) % Basophils % (Manual) 1.0 (0-1) % Neutrophils # (Manual) 7020 H (2841-2889) /uL RBC Morphology Normal morphology PT 11.4 (9.4-12.5) SECONDS INR 1.0 (0.9-1.3) APTT 34 (25.1-36.5) SECONDS Sodium 139 (137-145) mmol/L Potassium 4.3 (3.4-5.1) mmol/L Chloride 110 H (98-107) mmol/L Carbon Dioxide 25 (22-32) mmol/L BUN 37 H (7-17) mg/dL Creatinine 1.20 H (0.52-1.04) mg/dL Estimated GFR 44 L (>60) mL/min BUN/Creatinine Ratio 30.8 H (6-22) Glucose 99 (80-110) mg/dL Calcium 9.4 (8.4-10.2) mg/dL Magnesium 2.3 (1.6-2.3) mg/dL Total Bilirubin 0.5 (0.2-1.3) mg/dL AST 26 (14-36) IU/L ALT 10 (<35) IU/L Alkaline Phosphatase 64 (38-126) U/L Total Creatine Kinase 75 (30-135) U/L Troponin I < 0.012 (0.01-0.034) ng/mL Total Protein 6.8 (6.3-8.2) g/dL Albumin 4.5 (3.5-5.0) g/dL Globulin 2.3 (1.7-4.1) g/dL Albumin/Globulin Ratio 2.0 (1.0-2.8) Urine Dip Bedside Urine Glucose Negative Bedside Urine Bilirubin - Negative Bedside Urine Ketone - Negative Urine Specific [place] 1.015 Bedside Urine Occult Blood - Negative Bedside Urine pH 6.0 Bedside Urine Protein - Negative Bedside Urine Urobilinogen - Negative Bedside Urine Nitrite - Negative Bedside Urine Leukocytes - Negative Esterase Imaging Data Chest x-ray: Radiologist's Impression: [address] [address] XRay Report Signed Patient: Amna Leigh MR#: [id number] : 1940 Acct:[id number] Age/Sex: 84 / F Date of Service: 03/16/24 Loc: ED Accession Number: [id number] Procedure: XR chest 1V Ordering Provider: Anton Osuna MD PROCEDURE: XR CHEST 1V INDICATIONS: Possible stroke TECHNIQUE: One view of the chest was acquired. COMPARISON: [facility], CR, XR CHEST 2V, 02/12/2021, 15:10. FINDINGS: Surgical changes and devices: None. Lungs and pleura: Lungs are clear. No pleural effusions or pneumothorax. Mediastinum: Mediastinal contours appear normal. Heart size is normal. Bones and chest wall: No suspicious bony lesions. Overlying soft tissues appear unremarkable. IMPRESSION: No acute cardiopulmonary abnormality is seen. Dictated by: Lazarus Downey M.D. on 03/16/2024 at 17:35 Approved by: Lazarus Downey M.D. on 03/16/2024 at 17:36 CT scan - head: Radiologist's Impression: [place] [address] CT Scan Report Signed Patient: Amna Leigh MR#: [id number] : 1940 Acct:[id number] Age/Sex: 84 / F Date of Service: 03/16/24 Loc: ED Accession Number: [id number] Procedure: CT head/brain wo con Ordering Provider: Anton Osuna MD PROCEDURE: CT HEAD/BRAIN WO CON INDICATIONS: vision change TECHNIQUE: Noncontrast 4.5 mm thick angled axial sections acquired from the foramen magnum to the vertex, with coronal and sagittal reformats. For radiation dose reduction, the following was used: automated exposure control, adjustment of mA and/or kV according to patient size. COMPARISON: None. FINDINGS: Image quality: Diagnostic. CSF spaces: Basal cisterns are patent. No extra-axial fluid collections. The ventricles are symmetric in size and shape. Brain: No intracranial bleeds or masses. There is cerebral volume loss for age, with resultant ventricular and sulcal prominence. There are mild, age-appropriate periventricular and deep white matter chronic small vessel ischemic changes. There is intracranial internal carotid artery atherosclerosis. Skull and face: Calvarium and visualized facial bones appear intact, without suspicious lesions. Sinuses: Visualized sinuses and mastoids are clear. IMPRESSION: No acute intracranial pathology. Dictated by: Edin Vences M.D. on 03/16/2024 at 16:48 Approved by: Edin Vences M.D. on 03/16/2024 at 16:49 MRI Brain: Radiologist's Impression: [address] [address] Magnetic Resonance Report Signed Patient: Amna Leigh MR#: [id number] : 1940 Acct:[id number] Age/Sex: 84 / F Date of Service: 03/16/24 Loc: ED Accession Number: [id number] Procedure: MR head/brain wo con Ordering Provider: Anton Osuna MD PROCEDURE: MR HEAD/BRAIN WO CON INDICATIONS: vision disturbance TECHNIQUE: Non-contrast axial T1 spin echo, axial T2 fast spin echo, sagittal and axial FLAIR, coronal T2 fast spin echo, axial gradient echo, axial diffusion and ADC through the brain. COMPARISON: None. FINDINGS: Image quality: Excellent. CSF spaces: Ventricles appear symmetric in size and shape. Basal cisterns are patent. No extra-axial fluid collections. Brain: No intracranial bleeds or mass effects. There is cerebral volume loss for age. There are periventricular and deep white matter chronic small vessel ischemic changes. Brainstem appears normal. Diffusion-weighted images show no acute infarct. No chronic ischemic insults. Normal intravascular flow voids are present. Skull and face: Calvarial bone marrow is normal in signal. Orbits are normal. Sinuses: Sinuses and mastoids are clear. IMPRESSION: No acute intracranial pathology. Dictated by: Lazarus Downey M.D. on 03/16/2024 at 18:50 Approved by: Lazarus Downey M.D. on 03/16/2024 at 18:51 Carotid doppler ultrasounds: Radiologist's Impression: [address] [address] Ultrasound Report Signed Patient: Amna Leigh MR#: [id number] : 1940 Acct:[id number] Age/Sex: 84 / F Date of Service: 03/16/24 Loc: ED Accession Number: [id number] Procedure: US carotid doppler BI Ordering Provider: Anton Osuna MD PROCEDURE: US CAROTID DOPPLER BI INDICATIONS: double vision, eval carotids; hx single kidney no IV contras TECHNIQUE: Color and pulse Doppler interrogation was performed of both carotid systems, with image documentation and velocity measurements. COMPARISON: None. FINDINGS: Stenosis calculations are based on SRU (Society of Radiologists in Ultrasound) criteria. Right side: Brachial blood pressure: 205/98 mm Hg. Common carotid artery peak systolic velocity: 45 cm/sec. Internal carotid artery peak systolic velocity: 75 cm/sec. Internal carotid artery end diastolic velocity: 20 cm/sec. External carotid artery peak systolic velocity: 55 cm/sec. ICA/CCA peak systolic ratio: 1.7 . Nicolas scale imaging description: Mild atherosclerotic plaque Percent internal carotid artery stenosis: Less than 50% . Vertebral artery: Flow direction is antegrade. Left side: Brachial ,: 195/83 mm Hg. Common carotid artery peak systolic velocity: 50 cm/sec. Internal carotid artery peak systolic velocity: 49 cm/sec. Internal carotid artery end diastolic velocity: 9 cm/sec. External carotid artery peak systolic velocity: 52 cm/sec. ICA/CCA peak systolic ratio: 1 . Nicolas scale imaging description: Mild atherosclerotic plaque Percent internal carotid artery stenosis: Less than 50% . Vertebral artery: Flow direction is antegrade. IMPRESSION: Less than 50% stenosis within the internal carotid arteries. Elevated blood pressure, measuring up to 205/98 Dictated by: Lazarus Downey M.D. on 03/16/2024 at 20:02 Approved by: Lazarus Downey M.D. on 03/16/2024 at 20:04 ECG Data Attestation: I personally reviewed and interpreted this ECG as follows: Interpretation: EKG shows normal sinus rhythm with rate of 66, no obvious ST segment elevation or depression changes. T-wave inversion in lead 3 noted, flat T-waves in lead F. Upright T-waves in lead 2. MA 136, QRS 78, QTC 406. MDM Narrative Medical decision making narrative: 84-year-old female with history of previous unilateral nephrectomy, some lung lesions of unclear cause known, not at this time felt to be metastatic lesions, noted to have some double vision superiorly for about 30 minutes last week, while reading a book but no associated headache. On visual field testing at eye Clinic today there seemed to be some deficit in the right lower I feel, and left upper I feel, atypical for stroke, however recent diplopia would be new problem. No current diplopia symptoms. Referred from eye clinic for further imaging to include MRI of the brain. We will avoid CTA dye given single kidney status. Carotid Dopplers requested. CT Head no acute changes. MRI Brain no acute or subacute stroke changes. Carotid Doppler still be performed. Blood pressure 200/100 noted, asymptomatic at present. Heart rate 60s noted, history of single kidney, could consider ARB/NELIDA inhibitor but this might affect renal function, low heart rate noted, we will avoid beta-avi class for now. Amlodipine 2.5 mg oral dose for now. Await carotid Doppler study results. Carotid dopplers with less than 50% stenosis per report. BP decreasing on Amlodipine, Rx sent, titrate further as an outpatient. Home with family Critical Care Time Critical Care Time Critical Care Time: Yes Total Critical Care Time: 31 Attestation: The high probability of a clinically significant, sudden or life threatening deterioration of the [cardoplumonary, cerebrovascular, neurologic] system(s) required my full and direct attention, intervention and personal management. The aggregate critical care time was [31] minutes. This time is in addition to time spent performing reported procedures but includes the following: [x] Data Review and interpretation [x] Patient assessment and monitoring of vital signs [x] Documentation [x] Medication orders and management Discharge Plan Departure Patient Disposition: Home Clinical Impression: Hypertension, Hx of diplopia, History of nephrectomy Prescriptions: New amlodipine 2.5 mg tablet 2.5 mg PO DAILY Qty: 30 0RF No Action cranberry extract 650 mg Capsule 650 mg PO BID d-mannose Powder 0.5 ea PO BID Patient Comments: Instructed by Dr. Toro, 0.5 teaspoon bid acetaminophen 500 mg Capsule 500 mg PO Q6H PRN (Reason: Pain) Referrals: Telma Barnett MD [Primary Care Provider] - Stand Alone Forms: Patient Portal/API
[2024-03-16] MEDS: AMLODIPINE 5 MG TABLET 2.5 MG PO (20:00)
== END 2024-03-16 21:04 | disposition home or self-care (01) ==
PROVIDERS: Emergency Provider Emergency Medicine; PCP Specialist
DX: I10 Essential (primary) hypertension (principal); Z86.69 Personal history of other diseases of the nervous system and sense organs; Z90.5 Acquired absence of kidney; Z87.891 Personal history of nicotine dependence
CPT/HCPCS: 36415; 70450; 70551; 71045; 80053; 81003; 82550; 83735; 84484; 85007; 85025; 85610; 85730; 93005; 93880; 99284; 99291